=== PATIENT | male | born 1955 | race Caucasian/White ===

== ENCOUNTER → 2018-04-12 | Outpatient (CLI) | payer MEDICARE, OTHER ==
[~2018-04-12] VITALS: Ht 167.6 cm; Wt 99.0 kg
[~2018-04-12] MED LIST: aminophylline 250mg/10ml inj. IV PRN; atropine 0.1mg/ml 10ml syringe IV PRN; metoprolol tartrate 1mg/ml inj IV PRN; nitroGLYCERIN 0.4mg SUBLingual tab SL PRN; normal saline 500ml IV soln 500 ML IV ONE; regadenoson 0.4mg/5ml syringe IV ONE
== END | disposition home or self-care (01) ==
LOC: RAD 08:35
PROVIDERS: ATTEND Internal Medicine Cardiovascular Disease
DX: R00.1 Bradycardia, unspecified (principal); R07.9 Chest pain, unspecified; I10 Essential (primary) hypertension; E78.5 Hyperlipidemia, unspecified; E11.9 Type 2 diabetes mellitus without complications
CPT/HCPCS: 78451; A9500; J7030; J0461

== ENCOUNTER 2018-04-22 08:10 | Outpatient (CLI) | payer MEDICARE, OTHER ==
[2018-04-22] VITALS (8 sets, daily range): BP systolic 130–152; BP diastolic 68–79
[~2018-04-22] VITALS: Ht 167.6 cm; Wt 99.0 kg
[2018-04-22] MEDS ORDERED: regadenoson 0.4mg/5ml syringe IV ONE ×2 (09:00→10:16)
[2018-04-22] MEDS ORDERED: aminophylline 250mg/10ml inj. IV PRN (09:00)
[2018-04-22] MEDS ORDERED: nitroGLYCERIN 0.4mg SUBLingual tab SL PRN (09:00)
[2018-04-22] MEDS ORDERED: regadenoson 0.4mg/5ml syringe IV PRN (09:01)
[2018-04-22] MEDS ORDERED: aminophylline inj. 0 ML IV ONE (10:16)
== END 2018-04-22 23:59 | disposition home or self-care (01) ==
LOC: RAD 08:10
PROVIDERS: ATTEND Internal Medicine Cardiovascular Disease
DX: R00.1 Bradycardia, unspecified (principal); R07.89 Other chest pain; Z88.1 Allergy status to other antibiotic agents
CPT/HCPCS: 78452; 93017; A9500; J0280

== ENCOUNTER 2018-05-07 10:01 | Day surgery (SDC) | payer MEDICARE, OTHER ==
[2018-05-06 16:56] LABS: BASOPHILS # (AUTO) 0.1 X10'3 (0-0.2); BASOPHILS % (AUTO) 0.9 % (0-1); EOSINOPHILS % (AUTO) 13.6 % (0-6); HEMATOCRIT 53.3 % (42.0-52.0); HEMOGLOBIN 17.6 g/dl (14.0-17.9); LYMPHOCYTES % (AUTO) 26.9 % (21-51); MEAN CORPUSCULAR HEMOGLOBIN 29.3 PG (27.0-31.0); MEAN CORPUSCULAR VOLUME 88.9 FL (78-98); MEAN PLATELET VOLUME 6.9 FL (7.4-10.4); MONOCYTES # (AUTO) 0.6 X10'3 (0-0.9); MONOCYTES % (AUTO) 8.3 % (2-12); NEUTROPHILS # (AUTO) 3.8 X10'3 (1.8-7.7); NEUTROPHILS % (AUTO) 50.3 % (42-75); PLATELET COUNT 234 X10'3 (140-440); RED BLOOD COUNT 5.99 X10'6 (4.70-6.10); RED CELL DISTRIBUTION WIDTH 13.7 % (11.5-14.5); WHITE BLOOD COUNT 7.5 X10'3 (4.5-11.0)
[2018-05-06 17:07] LABS: ANION GAP 7 (8-16); BLOOD UREA NITROGEN 12 MG/DL (7-18); BUN/CREATININE RATIO 11.8 (5.4-32.0); CALCIUM 9.2 MG/DL (8.5-10.1); CHLORIDE 100 MMOL/L (99-107); CREATININE 1.02 MG/DL (0.60-1.10); GLUCOSE 110 MG/DL (70-104); POTASSIUM 3.8 MMOL/L (3.5-5.1); SODIUM 141 MMOL/L (135-145); TOTAL CARBON DIOXIDE 34.2 MMOL/L (24-32); eGFR 74 ML/MIN
[2018-05-06 17:19] LABS: INR 1.1 INR; PARTIAL THROMBOPLASTIN TIME 28 SECONDS (22-32); PROTHROMBIN TIME 10.9 SECONDS (9.0-12.0)
[2018-05-07] VITALS (11 sets, daily range): BP systolic 111–145; BP diastolic 69–98
[~2018-05-07] VITALS: Ht 167.6 cm; Wt 98.3 kg
[2018-05-07] MEDS ORDERED: LIDOcaine/PRILOcaine 5gm cream TP ONE (10:40)
[2018-05-07] MEDS ORDERED: DIAZ10TA PO (11:00)
[2018-05-07] MEDS ORDERED: OXYC-658 PO (11:00)
[2018-05-07] MEDS ORDERED: CETI10CA PO (11:00)
[2018-05-07] MEDS ORDERED: BUPR-94 PO (11:00)
[2018-05-07] MEDS ORDERED: PRO100T PO (11:00)
[2018-05-07] MEDS ORDERED: CYA500T PO (11:00)
[2018-05-07] MEDS ORDERED: PROM25TA14 PO (11:00)
[2018-05-07] MEDS ORDERED: TEST200V10 IM (11:00)
[2018-05-07] MEDS ORDERED: CHOL10002 PO (11:00)
[2018-05-07] MEDS ORDERED: HYDR-3686 PO (11:00)
[2018-05-07] MEDS ORDERED: PRAS25TA PO (11:00)
[2018-05-07] MEDS ORDERED: SUMA25TA35 PO (11:00)
[2018-05-07] MEDS ORDERED: DOCU-261 PO (11:00)
[2018-05-07] MEDS ORDERED: PREG150C PO (11:00)
[2018-05-07] MEDS ORDERED: PRED5TAB PO (11:00)
[2018-05-07] MEDS ORDERED: RED600TA PO (11:00)
[2018-05-07] MEDS ORDERED: MOME13HF INH (11:00)
[2018-05-07] MEDS ORDERED: TADA5TAB2 PO (11:00)
[2018-05-07] MEDS ORDERED: normal saline 1000ml 1,000 ML IV SCH (11:05)
[2018-05-07] MEDS ORDERED: LORazepam 0.5 MG tablet PO PRN (11:05)
[2018-05-07] MEDS ORDERED: diphenhydrAMINE 25mg capsule PO PRN (11:05)
[2018-05-07] MEDS ORDERED: midazolam 2 mg/2 ml injection ONE (12:01)
[2018-05-07] MEDS ORDERED: fentaNYL/PF 50MCG/1 ML 2ML syringe ONE (12:01)
[2018-05-07] MEDS ORDERED: verapamil 2.5 mg/ml inj IV ONE (12:01)
[2018-05-07] MEDS ORDERED: iohexol 350MG/ML 100ml bottle IV ONE (12:02)
[2018-05-07] MEDS ORDERED: heparin 1,000unit/ml 10ml vial 10 ML ONE (12:02)
[2018-05-07] MEDS ORDERED: iohexol 350 MG/ML 50ML vial IV ONE (12:02)
[2018-05-07] MEDS ORDERED: LIDOcaine 1% (10mg/ml)w/preservative injection 20ml MDV ONE (12:02)
[2018-05-07] MEDS ORDERED: nitroGLYCERIN-Tridil 50MG/D5W 250 ML IV ONE (12:02)
== END 2018-05-07 17:38 | disposition home or self-care (01) ==
LOC: SSTAY O 10:01
PROVIDERS: ATTEND Internal Medicine Cardiovascular Disease
DX: I25.118 Atherosclerotic heart disease of native coronary artery with other forms of angina pectoris (principal); I10 Essential (primary) hypertension; E78.5 Hyperlipidemia, unspecified; E66.9 Obesity, unspecified; M79.7 Fibromyalgia; J45.998 Other asthma; M19.90 Unspecified osteoarthritis, unspecified site; F32.9 Major depressive disorder, single episode, unspecified; G47.33 Obstructive sleep apnea (adult) (pediatric); I49.5 Sick sinus syndrome; G89.29 Other chronic pain; F41.8 Other specified anxiety disorders; G62.9 Polyneuropathy, unspecified; Q21.1 Atrial septal defect; Z79.891 Long term (current) use of opiate analgesic; Z88.0 Allergy status to penicillin; Z88.1 Allergy status to other antibiotic agents; Z68.35 Body mass index [BMI] 35.0-35.9, adult; Z86.69 Personal history of other diseases of the nervous system and sense organs; Z99.81 Dependence on supplemental oxygen; Z98.41 Cataract extraction status, right eye; Z98.42 Cataract extraction status, left eye; Z85.828 Personal history of other malignant neoplasm of skin; Z98.890 Other specified postprocedural states; Z79.899 Other long term (current) drug therapy; Z82.49 Family history of ischemic heart disease and other diseases of the circulatory system
CPT/HCPCS: 36415; 80048; 85025; 85610; 85730; 93005; 93458; 99152; 99153; J1644; J2001; J2250; J3010; J7030; Q0163; Q9967; A4620; C1769; J3490

== ENCOUNTER 2018-07-19 06:51 | Emergency (ER) | payer MEDICARE, OTHER ==
[~2018-07-19] VITALS: Ht 170.2 cm; Wt 91.7 kg
[~2018-07-19 06:51] MED LIST changes: +BUPR-94 PO; +CETI10CA PO; +CHOL10002 PO; +CYA500T PO; +DIAZ10TA PO; +DOCU-261 PO; +HYDR-3686 PO; +MOME13HF INH; +OXYC-658 PO; +PRAS25TA PO; +PRED5TAB PO; +PREG150C PO; +PRO100T PO; +PROM25TA14 PO; +RED600TA PO; +SUMA25TA35 PO; +TADA5TAB2 PO; +TEST200V10 IM; -aminophylline 250mg/10ml inj. IV PRN; -atropine 0.1mg/ml 10ml syringe IV PRN; -metoprolol tartrate 1mg/ml inj IV PRN; -nitroGLYCERIN 0.4mg SUBLingual tab SL PRN; -normal saline 500ml IV soln 500 ML IV ONE; -regadenoson 0.4mg/5ml syringe IV ONE
--- NOTE | 2018-07-19 07:08 | NUR ---
Call placed to poison control. Need to watch patient for four hours and watch for stimulant effects such as tachycardia, hypertension, vomiting, diarrhea, dizziness, and agitation. Treat symptoms with valium or ativan. EKG for prolong Qt interval.
[2018-07-19] MEDS ORDERED: LUBI8CAP PO (08:16)
[2018-07-19] MEDS ORDERED: TIZA4CAP PO (08:16)
--- NOTE | 2018-07-19 08:16 | NUR ---
dr delgado made aware of the pt.
[2018-07-19 09:47] LABS: BASOPHILS % (AUTO) 0.3 % (0-1); EOSINOPHILS % (AUTO) 0.1 % (0-6); HEMATOCRIT 45.4 % (42.0-52.0); HEMOGLOBIN 15.3 g/dl (14.0-17.9); LYMPHOCYTES # (AUTO) 1.2 X10'3 (1.1-4.8); LYMPHOCYTES % (AUTO) 14.8 % (21-51); MEAN CORPUSCULAR HGB CONC 33.7 g/dL (33.0-36.5); MEAN CORPUSCULAR VOLUME 89.2 FL (78-98); MEAN PLATELET VOLUME 7.2 FL (7.4-10.4); MONOCYTES # (AUTO) 0.7 X10'3 (0-0.9); MONOCYTES % (AUTO) 8.6 % (2-12); NEUTROPHILS # (AUTO) 6.3 X10'3 (1.8-7.7); NEUTROPHILS % (AUTO) 76.2 % (42-75); PLATELET COUNT 224 X10'3 (140-440); RED BLOOD COUNT 5.09 X10'6 (4.70-6.10); RED CELL DISTRIBUTION WIDTH 14.2 % (11.5-14.5); WHITE BLOOD COUNT 8.2 X10'3 (4.5-11.0)
[2018-07-19 10:08] LABS: ALANINE AMINOTRANSFERASE 27 U/L (12-78); ALBUMIN 3.7 G/DL (3.4-5.0); ALBUMIN/GLOBULIN RATIO 1.2 (1.1-1.5); ALKALINE PHOSPHATASE 85 IU/L (46-116); ANION GAP 8 (8-16); ASPARTATE AMINO TRANSFERASE 14 U/L (10-37); BILIRUBIN,TOTAL 0.3 MG/DL (0.1-1.0); BLOOD UREA NITROGEN 17 MG/DL (7-18); BUN/CREATININE RATIO 21.3 (5.4-32.0); CALCIUM 8.8 MG/DL (8.5-10.1); CHLORIDE 103 MMOL/L (99-107); GLUCOSE 116 MG/DL (70-104); POTASSIUM 4.4 MMOL/L (3.5-5.1); SODIUM 141 MMOL/L (135-145); TOTAL CARBON DIOXIDE 30.5 MMOL/L (24-32); TOTAL PROTEIN 6.9 G/DL (6.4-8.2); eGFR > 90 ML/MIN
[2018-07-19 11:18] VITALS: BP 136/85
== END 2018-07-19 11:22 | disposition home or self-care (01) ==
LOC: ER 06:52
DX: T43.691A Poisoning by other psychostimulants, accidental (unintentional), initial encounter (principal); I10 Essential (primary) hypertension; J45.909 Unspecified asthma, uncomplicated; Z98.890 Other specified postprocedural states; Z88.1 Allergy status to other antibiotic agents; Z79.899 Other long term (current) drug therapy; Y92.89 Other specified places as the place of occurrence of the external cause
CPT/HCPCS: 36415; 80053; 85025; 93005; 99284

== ENCOUNTER 2023-04-04 09:44 | Emergency (ER) | payer MEDICARE, BC ==
[~2023-04-04] VITALS: Ht 167.6 cm; Wt 79.0 kg
[~2023-04-04 09:44] MED LIST changes: -CHOL10002 PO; -CYA500T PO; -DIAZ10TA PO; -DOCU-261 PO; +LUBI8CAP PO; -MOME13HF INH; -PRAS25TA PO; -PROM25TA14 PO; -RED600TA PO; -SUMA25TA35 PO; -TADA5TAB2 PO; -TEST200V10 IM; +TIZA4CAP PO
[2023-04-04] MEDS ORDERED: HYDROcodone/acetaminophen 10/325mg tab PO STA (09:55)
[2023-04-04] MEDS ORDERED: diazepam inj 5 MG/ML inj. IV ONE (10:35)
[2023-04-04] MEDS ORDERED: morphine 4 MG/ML inj SYRINge IV ONE ×2 (10:35→13:20)
[2023-04-04] MEDS ORDERED: ondansetron/PF 4mg/2ml inj IV ONE (10:35)
[2023-04-04] MEDS ORDERED: etomidate 2mg/ml inj. IV ONE (11:20)
[2023-04-04] MEDS ORDERED: propofol 10mg/ml 20ml vial IV STA (11:36)
[2023-04-04] MEDS ORDERED: propofol 10mg/ml 20ml vial IV ONE ×2 (11:40→12:35)
--- NOTE | 2023-04-04 11:45 | NUR ---
PROPOFOL 50MG IV GIVEN AT 1145AM BY DR CHEEMA
--- NOTE | 2023-04-04 11:47 | NUR ---
PROPOFOL 50MG GIVEN IV VIA DR CHEEMA
--- NOTE | 2023-04-04 11:49 | NUR ---
40MG PROPOFOL GIVE VIA IV BY DR CHEEMA
--- NOTE | 2023-04-04 11:51 | NUR ---
20MG PROPOFOL GIVEN VIA IV DR CHEEMA
--- NOTE | 2023-04-04 11:52 | NUR ---
20MG IV PROPOFOL GIVEN BY DR CHEEMA
[2023-04-04] MEDS ORDERED: NAPR-56 PO (12:00)
[2023-04-04 14:45] VITALS: BP 120/73; RESP 18; O2SAT 96
[2023-04-04 15:02] VITALS: PULSE 90; TEMP 98.2
== END 2023-04-04 15:05 | disposition home or self-care (01) ==
LOC: ER 09:44
DX: S43.015A Anterior dislocation of left humerus, initial encounter (principal); S09.90XA Unspecified injury of head, initial encounter; S05.12XA Contusion of eyeball and orbital tissues, left eye, initial encounter; I10 Essential (primary) hypertension; J45.909 Unspecified asthma, uncomplicated; Z87.81 Personal history of (healed) traumatic fracture; Z88.8 Allergy status to other drugs, medicaments and biological substances; W19.XXXA Unspecified fall, initial encounter; Y93.89 Activity, other specified; Y92.89 Other specified places as the place of occurrence of the external cause; Y99.8 Other external cause status
CPT/HCPCS: 23650; 70450; 70486; 71100; 73030; 73090; 73110; 96374; 96375; 96376; 99152; 99153; 99285; A6258; J2270; J2405; J2704; J3360; 94760